=== PATIENT | female | born 1990 | race Caucasian/White ===

== ENCOUNTER 2016-06-02 19:14 | Emergency (ER) | payer OTHER ==
[2016-06-02] MEDS ORDERED: PEPCID PO ONE (20:07)
[2016-06-02] MEDS ORDERED: KEFLEX PO ONE (20:07)
[2016-06-02] MEDS ORDERED: MOTRIN PO ONE (20:07)
--- NOTE | 2016-06-02 20:07 | PROVIDER DOCUMENTATION ---
HPI-Musculoskeletal Pain/Inj - GENERAL Chief Complaint: Extremity Pain Stated Complaint: LT MIDDLE FINGER NUMBNESS Time Seen by Provider: 06/02/16 19:56 Source: patient - HX OF PRESENT ILLNESS-MUSKULOSKELTAL Nature of Presenting Problem: 26 year old WF presents with c/o right middle finger tenderness/erythema, onset today. pt reports pain is sharp and radiates from the nail bed down to the MIP. pt reports she bites her nails. Quality of Pain: reports: sharp, stabbing Severity in ED: mild Onset/Duration: just prior to arrival Timing: still present, constant, getting worse Modifying Factors: improves with: nothing Any recent injury?: No Review of Systems - Adult - REVIEW OF SYSTEMS - ADULT Constitutional: reports: no symptoms reported. denies: chills, fever, fatique Eyes: reports: no symptoms reported. denies: discharge, blurred vision, double vision, redness Ears, Nose, Mouth & Throat: reports: no symptoms reported. denies: ear discharge, ear pain, nose pain, loose teeth, throat pain, throat swelling Cardiovascular: reports: no symptoms reported. denies: chest pain, palpitations , syncope Respiratory: reports: no symptoms reported. denies: chronic cough, cough, shortness of breath, wheezing Gastrointestinal: reports: no symptoms reported. denies: abdominal pain, diarrhea, nausea, vomiting Genitourinary: reports: no symptoms reported. denies: dysuria, hematuria, urgency Musculoskeletal: reports: see HPI, other (right middle finger nailbed tenderness ). denies: bone pain, back pain, frequent leg cramps, joint pain, joint swelling, muscle aches, muscle weakness, neck pain Integumentary: reports: see HPI, other (erythema). denies: hives, itching, rash , skin sores/ulcer Neurological: reports: no symptoms reported. denies: ataxia, dizziness/vertigo , loss of balance Psychiatric: reports: no symptoms reported Endocrine: reports: no symptoms reported Hematologic/Lymphatic: reports: no symptoms reported Allergic/Immunologic: reports: no symptoms reported All Other Systems: Reviewed and Negative Past History - Adult - PAST MEDICAL HISTORY-ADULT Review of Records: reports: Old Records Reviewed, Nursing Assessment Review, Medications Reviewed, Social history reviewed & non-contributory. Major Childhood Illnesses: reports: denies history Cardiovascular: reports: denies history Respiratory: reports: denies history Gastrointestinal: reports: denies history Obstetrical/Gynecological: reports: denies history Genitourinary: reports: denies history Musculoskeletal: reports: denies history Neurological: reports: denies history Endocrine/Immune: reports: denies history Other Conditions: reports: denies history - IMMUNIZATION STATUS Childhood Immunizations: See Nurse Assessment Flu Vaccine: See Nurse Assessment - FAMILY HISTORY Family History: reviewed, not pertinent - SOCIAL HISTORY Smoking: cigarettes Provider spent 3-5 mins advising pt. on dangers of tobacco.: Discussed manners to quit use, and f/u contacts for add'l counseling. Substance Use: none/never Alcohol Use Frequency: never Physical Exam-Injury Related - Physical Exam-Injury Related Initial Vital Signs Reviewed: Yes General Appearance: appears well, alert, no apparent distress. negative: mild distress, moderate distress, severe distress, lethargic, slow to respond, obtunded, combative Eyes: pink conjunctivae. negative: conjuctival exudate Head, Ears, Nose, Mouth & Throat: normocephalic/atraumatic, moist mucous membranes, normal ENT inspection Neck: non-tender, full range of motion, supple, normal inspection Respiratory: chest non-tender, lungs clear, normal breath sounds, no pleuratic chest pain, no respiratory distress, no accessory muscle use Cardiovascular: normal peripheral pulses, regular rate, rhythm Chest/Breast: deferred Peripheral Pulses: radial (R): 3+, radial (L): 3+ Abdominal Exam: normal bowel sounds, non tender, soft Female Genitalia/Pelvic Exam: deferred Rectal Exam: deferred Hemoccult Exam: deferred Back Exam: normal inspection, no CVA tenderness, no vertebral tenderness Extremity: normal range of motion, normal gait, normal inspection, no pedal edema, no calf tenderness, normal capillary refill, inflammation, swelling, tenderness (left middle finger with tenderness at the lateral nailbed, surrounding erythema, withot purulent drainage, full ROM to the proximal/distal PIP joint, increased warmth to palpaptation.). negative: non-tender Integumentary: normal color, warm/dry, blanching Neurologic: grossly normal, no motor/sensory deficits. negative: focal weakness , motor weakness, sensory deficit Psych/Mental Status: normal mood/affect, normal thought content, normal thought process, oriented x 3 - Glascow Coma Score Best Eye Response ([place]): (4) open spontaneously Best Verbal Response (Radha): (5) oriented Best Motor Response (Radha): (6) obeys commands Radha Total: 15 Progress - PLAN OF CARE/RESULTS Progress/Plan/Lab Results: Orders Category Date Time Status ED: Urine Bedside ORDERED Care 06/02/16 19:31 Active FINGER(S)-LEFT [RAD] Stat Exams 06/02/16 19:31 Completed CephALEXIN [Keflex] Med 06/02/16 20:07 Discontinued 500 mg PO NOW ONE Famotidine [Pepcid] Med 06/02/16 20:07 Discontinued 20 mg PO NOW ONE Ibuprofen [Motrin] Med 06/02/16 20:20 Discontinued 800 mg .ROUTE .STK-MED ONE Ibuprofen [Motrin] Med 06/02/16 20:07 Discontinued 800 mg PO NOW ONE Vital Signs - 24 hr 06/02/16 06/02/16 19:28 20:33 Temperature 98.2 F Pulse Rate 90 79 Respiratory 16 17 Rate Blood Pressure 143/89 129/89 O2 Sat by Pulse 100 100 Oximetry Departure - Departure Time of Disposition Order: 20:03 DIAGNOSIS: Paronychia of finger of right hand Disposition: HOME 01 Certified Medical Emergency: Emergent Condition: Stable Additional Instructions: Follow up with your primary care doctor for a re-check in the office. ED Follow Up Instructions: You have been treated by a care provider in the Emergency Department. These instructions are being provided to you so you can have an understanding of how to care for yourself upon discharge. Upon discharge from the Emergency Department, you are responsible for making arrangements for follow-up care by a physician of your choice. Take all prescribed medications as directed. Return to the Emergency Department immediately for any new or worsening symptoms. You may call the Physician Referral phone number at [phone] to obtain a list of Physicians who are taking new patients. Prescriptions: Cephalexin [Keflex] 500 mg PO BID #14 capsule Ibuprofen [Motrin] 800 mg PO Q8H PRN PRN #20 tablet PRN Reason: inflammation Famotidine [Pepcid] 20 mg PO DAILY #20 tablet Referrals: Naveed Perez MD [Primary Care Provider] - Forms: Return to School/Parent Work Instructions: Paronychia, [employer] Attestation - Physician/ ELIDIA Attestation Patient care was provided by Advanced Practice Provider:: Yes Advanced Practice Provider:: Jose Bazan Advanced Practice Provider documentation review:: The Mid-level provider documentation, treatment plan and medical decision making was reviewed by the physician who agrees with all treatment and medical decision making by the MLP.
[2016-06-02] MEDS ORDERED: MOTRIN ONE (20:20)
[2016-06-02 20:34] VITALS: BP 129/89
--- NOTE | 2016-06-03 08:19 | Diag Imaging Result Document ---
PROCEDURE NAME: FINGER(S)-LEFT - 06/02/2016 LEFT THIRD FINGER, THREE VIEWS: FINDINGS: No fracture. No dislocation. Normal joint spaces. No bone erosions. No subluxation. No other bony abnormality. IMPRESSION: Negative exam.
== END 2016-06-02 20:34 | disposition home or self-care (01) ==
LOC: ED 19:14
DX: L03.011 Cellulitis of right finger (principal); R20.0 Anesthesia of skin; M79.644 Pain in right finger(s); F17.210 Nicotine dependence, cigarettes, uncomplicated
CPT/HCPCS: 73140; 81025; 99284